=== PATIENT | male | born 1980 | race Native Hawaiian/Other Pacific Islander ===

== ENCOUNTER 2016-12-20 15:16 | Emergency (ER) | payer OTHER ==
[~2016-12-20] VITALS: Ht 182.9 cm; Wt 82.6 kg
[2016-12-20 18:51] VITALS: BP 120/74; TEMP 98.2
== END 2016-12-20 18:58 | disposition home or self-care (01) ==
LOC: ED 15:16
DX: R19.7 Diarrhea, unspecified (principal); E86.9 Volume depletion, unspecified
CPT/HCPCS: 36415; 96360; 99283